=== PATIENT | male | born 1990 | race Caucasian/White ===

== ENCOUNTER 2020-09-26 21:22 | Observation (INO) | payer OTHER ==
[~2020-09-26] VITALS: Ht 182.9 cm; Wt 82.4 kg
[2020-09-26 21:56] LABS: BASOPHILS % (AUTO) 1 % (0-1); EOSINOPHILS % (AUTO) 4 % (1-7); LYMPHOCYTES % (AUTO) 45 % (22-44); MEAN CORPUSCULAR HEMOGLOBIN 29.8 pg (27.5-34.5); MEAN CORPUSCULAR HGB CONC 33.4 g/dL (33.2-36.2); MEAN PLATELET VOLUME 7.6 fL (7.4-10.4); MONOCYTES % (AUTO) 6 % (2-9); NEUTROPHILS % (AUTO) 45 % (42-75); PLATELET COUNT 238 x10^3/uL (130-400); RED BLOOD COUNT 4.93 x10^6/uL (4.38-5.82); RED CELL DISTRIBUTION WIDTH 13.2 % (9.4-14.8)
[2020-09-26] MEDS ORDERED: SODIUM CHLORIDE FLUSH 10ML SYR IVF ONE (22:00)
[2020-09-26 22:07] LABS: ALANINE AMINOTRANSFERASE 30 U/L (12-78); ALBUMIN 3.9 g/dL (3.4-5.0); ANION GAP 5 mmol/L (5-15); CALCIUM 8.7 mg/dL (8.5-10.1); CHLORIDE 107 mmol/L (98-107); CREATININE 0.81 mg/dL (0.7-1.3)
[2020-09-26 22:10] LABS: ALKALINE PHOSPHATASE 38 U/L (45-117); BILIRUBIN,TOTAL 1.3 mg/dL (0.2-1.0); TOTAL PROTEIN 6.8 g/dL (6.4-8.2)
[2020-09-26] MEDS ORDERED: ASPIRIN 325 MG TABLET ONE (22:21)
[2020-09-26] MEDS ORDERED: ASPIRIN 325 MG TABLET PO ONE (22:30)
--- NOTE | 2020-09-26 22:31 | NUR ---
[facility] [employer], AWAITING RESULTS AT THIS TIME. VSS AND WILL CONT TO MONITOR.
[2020-09-26 22:32] LABS: MD NO
[2020-09-26 22:36] LABS: INTERNATIONAL NORMALIZED RATIO 1.07 (0.93-1.1); PROTHROMBIN TIME 11.3 Seconds (9.6-11.5)
--- NOTE | 2020-09-26 22:42 | NUR ---
PT PROVIDED WITH MEAL FROM [employer].
[2020-09-26] MEDS ORDERED: ACETAMINOPHEN 650 MG/20.3 ML UDC PO PRN (23:00)
[2020-09-26] MEDS ORDERED: SODIUM CHLORIDE 0.9% 1,000 ML IV SCH (23:00)
[2020-09-26] MEDS ORDERED: DOCUSATE 100 MG CAPSULE PO PRN (23:00)
[2020-09-26 23:55] VITALS: BP 117/75
[2020-09-26] MEDS ORDERED: ESCI10TA10 PO (23:55)
[2020-09-27 00:41] VITALS: BP 112/75
[2020-09-27 04:15] VITALS: BP 108/66
[2020-09-27 04:40] LABS: LDL/HDL RATIO 1.5 (0.5-3.0)
[2020-09-27 07:05] VITALS: BP 108/69
[2020-09-27] MEDS ORDERED: ASPIRIN 81 MG TABLET CHEW PO/NG SCH (09:00)
[2020-09-27 12:45] VITALS: BP 115/74
[2020-09-27] MEDS ORDERED: ATORVASTATIN 40 MG TABLET PO SCH (21:00)
== END 2020-09-27 17:26 | disposition home or self-care (01) ==
LOC: ED 22:12 → INTOOBSV 09-27 00:23 → 4WST 09-27 00:23
PROVIDERS: ADMIT Family Medicine; ATTEND Family Medicine
DX: G45.9 Transient cerebral ischemic attack, unspecified (principal); G46.0 Middle cerebral artery syndrome; E80.7 Disorder of bilirubin metabolism, unspecified; E80.6 Other disorders of bilirubin metabolism; F41.8 Other specified anxiety disorders; G89.29 Other chronic pain; M54.9 Dorsalgia, unspecified; Z87.891 Personal history of nicotine dependence; Z79.899 Other long term (current) drug therapy
CPT/HCPCS: 36415; 70450; 70551; 80053; 80061; 85025; 85610; 85730; 93005; 93306; 93880; 96360; 96361; 97161; 99285; G0378; J7030

== ENCOUNTER 2021-03-14 22:43 | Emergency (ER) | payer OTHER ==
[~2021-03-14] VITALS: Ht 182.9 cm; Wt 79.5 kg
[~2021-03-14 22:43] MED LIST: ESCI10TA10 PO
--- NOTE | 2021-03-14 23:05 | NUR ---
PT TRANSFERRED FROM [facility] FOR INJURY TO LEFT INDEX FINGER. PT HERE FOR CONSULTATION FOR ORTHO. VSS. REPORT TO NILAM NAYLOR
[2021-03-14] MEDS ORDERED: LIDOCAINE-MPF 1%, 5ML ONE (23:21)
[2021-03-15] MEDS ORDERED: LIDOCAINE-MPF 1%, 5ML INFIL ONE (00:30)
[2021-03-15] MEDS ORDERED: LIDOCAINE-MPF 1%, 5ML ONE (00:34)
--- NOTE | 2021-03-15 00:54 | NUR ---
PT GIVEN DANICA AND TERENCE. DR KENNY MORAN WITH PT EATING.
[2021-03-15 02:22] VITALS: BP 132/76
== END 2021-03-15 02:25 | disposition home or self-care (01) ==
LOC: ED 03-15 00:50
DX: S61.211A Laceration without foreign body of left index finger without damage to nail, initial encounter (principal); Z86.73 Personal history of transient ischemic attack (TIA), and cerebral infarction without residual deficits; Z87.891 Personal history of nicotine dependence; W26.8XXA Contact with other sharp object(s), not elsewhere classified, initial encounter; Y93.89 Activity, other specified; Y92.009 Unspecified place in unspecified non-institutional (private) residence as the place of occurrence of the external cause; Y99.8 Other external cause status
CPT/HCPCS: 12042; 99284